=== PATIENT | male | born 1980 | race Caucasian/White ===

== ENCOUNTER 2021-12-09 15:34 | Emergency (ER) | payer OTHER, SELFPAY ==
[2021-12-09] VITALS (13 sets, daily range): BP systolic 115–138; BP diastolic 75–89; PULSE 56–66; RESP 9–16; TEMP 37.2; O2SAT 97–100
--- NOTE | 2021-12-09 15:45 | DI.RAD_ITS ---
Exam(s) XR RIBS RT W PA LAT CHEST EXAM: XR RIBS RT W PA LAT CHEST CLINICAL HISTORY: pain post fall, abrasions right mid/lower rib cage TECHNIQUE: 2D digital imaging was performed. COMPARISON: CT CT CHEST/ABD/PEL W from 12/09/2021 FINDINGS: Six views: Right ribs-four views: There are fractures of the right 8th, 9th, 10th, and 11th ribs . Mild displac ement. No clavicle fracture. No lung contusion or pneumothorax. There is no pleural effusion evident. Heart size is normal and there is no significant mediastinal widening. Azygos accessory lobe on the right incidentally noted. IMPRESSION: 1. Multiple right rib fractures involving right 8th through 11th ribs, inclusive. 2. No ipsilateral lung nor pleural abnormality evident. No pneumothorax. DATA REPOSITORY: RADIATION DOSE DELIVERED:
--- NOTE | 2021-12-09 16:30 | DI.CT_ITS ---
Exam(s) CT CHEST/ABD/PEL W EXAM: CT CHEST/ABD/PEL W CLINICAL HISTORY: RUQ pain and chest pain. TECHNIQUE: Imaging Protocol: Axial computed tomography images with coronal and sagittal reformatted images were created and reviewed CONTRAST MATERIAL: Intravenous: Omnipaque 350 Contrast volume:100 ml Oral: None COMPARISON: No exams were available for comparison FINDINGS: CHEST: LUNGS: Accessory azygos lobe incidentally noted on the right side. No evidence of lung contusion or pleural effusion. No pneumothorax. No incidental lung nodules.. There are fractures of the right 8 th through 11th ribs, inclusive. These are mildly displaced fractures. No ipsilateral scapular frac ture evident. No sternal fracture. MEDIASTINUM: No mediastinal hematoma. No sternal fracture. No incidental hilar nor mediastinal shahram opathy. Visualized thyroid unremarkable. CARDIAC: Heart size is normal. There is no pericardial effusion.Caliber of the thoracic aorta is wit hin normal limits. OSSEOUS: Right rib fractures 8th through 11th, inclusive. ABDOMEN: There is no ascites. No evidence of mesenteric nor bowel wall hematoma. LIVER: No significant focal findings. No lacerations. No incidental lesions evident. GALLBLADDER/BILIARY: No obvious gallbladder pathology. CBD is not dilated. PANCREAS: No evidence of pancreatic mass nor dilatation of the pancreatic duct. SPLEEN: Spleen intact. No laceration. Normal size. Splenic and portal veins are patent. ADRENALS: There are no significant adrenal masses. KIDNEYS: No evidence of renal trauma. No lacerations.. No renal masses nor significant cysts. No c alculi. No hydronephrosis. ABDOMINAL AORTA: Intact. Unremarkable. No aneurysm. No dissection LYMPH NODES: There is no retroperitoneal nor paraaortic adenopathy. ABDOMINAL WALL: No evidence of significant anterior abdominal wall nor inguinal hernia. GI: There is no evidence of bowel obstruction.No bowel wall hematoma. PELVIS: LYMPH NODES: There is no intrapelvic nor inguinal adenopathy. GI: No evidence of appendicitis.No evidence of sigmoid diverticulitis. URINARY BLADDER: Intact. Appears unremarkable. REPRODUCTIVE: Prostate not enlarged. OSSEOUS: No significant osseous lesions. No fractures. IMPRESSION: 1. Multiple mildly displaced right rib fractures involving the 8th through 11th ribs, inclusive. The re is no lung contusion or pneumothorax nor pleural effusion 2. No acute findings in the abdomen and pelvis. 3. No ascites and no evidence of mesenteric nor bowel wall hematoma. RADIATION DOSE DELIVERED: 1,163.98mGy.cm Total DLP DATA REPOSITORY: All CT scans at this facility are submitted to the National Radiology Data Registry (NRDR) Dose Index Registry (DIR) with the [employer] (A[employer]). RADIATION OPTIMIZATION: All CT scans at this facility use at least one of these dose optimization te chniques: automated exposure control; mA and/or kV adjustment per patient size (includes targeted exa ms where dose is matched to clinical indication); or iterative reconstruction.
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
[2021-12-09] MEDS: MORPHine 10 MG/ML VIAL 6 MG IVP (16:52)
[2021-12-09] MEDS: Normal Saline 1,000 ML 1000 ML IV (16:52)
[2021-12-09 17:01] LABS: Abs Immature Grans 0.04 10^3/uL (0.0-0.06); Absolute Basophil Count 0.05 10^3/uL (0.0-0.2); Absolute Eosinophil Count 0.11 10^3/uL (0.0-0.7); Absolute Lymphocyte Count 1.34 10^3/uL (1.2-3.4); Absolute Monocyte Count 0.53 10^3/uL (0.1-0.8); Basophils % 0.4; HGB 15.3 g/dL (13.5-17.5); Immature Grans % 0.4; Lymphocytes % 11.9; MCH 32.1 pg (27.0-33.0); MCHC 34.8 % (32.0-36.0); MCV 92 fL (80-95); MPV 10.3 fL (8.0-11.0); Monocytes % 4.7; Neutrophils % 81.6; Platelet Count 259 10^3/uL (130-400); RBC 4.77 10^6/uL (4.36-5.78); RDW 12.5 % (11.8-14.1); RDW-SD 42.5 fL; WBC 11.28 10^3/uL (4.4-10.8)
[2021-12-09] MEDS: Ondansetron 4 MG/2 ML VIAL IVP (17:08)
[2021-12-09 17:13] LABS: ALT 55 U/L (16-63); AST 41 U/L (15-37); Albumin 4.6 g/dL (3.4-5.0); Alkaline Phosphatase 55 U/L (46-116); Anion Gap 9.2 mmol/L (3-11); BUN 17 mg/dL (7-18); Bilirubin, Total 0.6 mg/dL (0.2-1.0); CO2 29.8 mmol/L (21.0-32.0); Calcium 9.3 mg/dL (8.5-10.1); Chloride 102 mmol/L (98-107); Glucose 97 mg/dL (74-106); Lipase 57 U/L (73-393); Potassium 4.3 mmol/L (3.5-5.1); Sodium 141 mmol/L (136-145); Total Protein 7.8 g/dL (6.4-8.2)
[2021-12-09] MEDS: Omnipaque 350 MG/ML 100 ML BTL IJ (17:20)
[2021-12-09] MEDS: Normal Saline Flush 10 ML SYR IVP (17:21)
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
[2021-12-09] MEDS: HYDROmorphone 2 MG/ML VIAL 1 MG IVP (18:00)
[2021-12-09] MEDS: Ketorolac 15 MG/ML VIAL IVP (18:00)
== END 2021-12-09 18:36 | disposition home or self-care (01) ==
PROVIDERS: Emergency Provider Physician Assistant
DX: S22.41XA Multiple fractures of ribs, right side, initial encounter for closed fracture (principal); V27.4XXA Motorcycle driver injured in collision with fixed or stationary object in traffic accident, initial encounter; Y93.39 Activity, other involving climbing, rappelling and jumping off; Y92.828 Other wilderness area as the place of occurrence of the external cause
CPT/HCPCS: 36415; 74177; 80053; 83690; 86850; 86900; 86901; 96361; 96374; 96375; 99285; 71046; 71100; 71260; 85025; 99284; J1885; J2270; J2405; J3490